=== PATIENT | male | born 1950 | race Caucasian/White ===

== ENCOUNTER 2017-06-09 10:11 | Emergency (ER) | payer BC ==
[2017-06-09] MEDS ORDERED: NS 0.9% 1000 ML* 3,000 ML IV ONE (10:45)
[2017-06-09 11:36] LABS: Hematocrit 48 % (42-52); Hemoglobin 15.4 g/dl (14.0-18.0); Mean Corpuscular HGB Conc 32 g/dl (31-36); Mean Corpuscular Hemoglobin 29 pg (27-31); Mean Corpuscular Volume 90 fL (80-94); Mean Platelet Volume 9 um3 (7.4-10.4); Red Blood Count 5.33 10^6/ul (4.0-5.4); Red Cell Distribution Width 15 % (10.5-15); White Blood Count 4.4 10^3/ul (3.5-10.8)
[2017-06-09 11:39] LABS: Comments Flag Yes
[2017-06-09 11:40] LABS: Add Diff/Slide Review? Slide Review Added
[2017-06-09 11:50] LABS: Albumin 3.7 g/dL (3.2-5.2); BUN/Creatinine Ratio 18.3 (8-20); C Reactive Protein 115.3 mg/L (< 5.00); EGFR African American 104.9 (>60); EGFR Non-African American 81.5 (>60); Globulin 3.4 g/dL (2-4); Total Bilirubin 0.6 mg/dL (0.2-1.0); Total Protein 7.1 g/dL (6.4-8.9); Troponin I 0.03 ng/mL (<0.04)
--- NOTE | 2017-06-09 12:34 | RAD ---
Indication: Fever, cough and pneumonia. 2 views of the chest including dual energy PA views demonstrate no mediastinal shift. Heart is of normal size and configuration. Lung hernandez appear clear. Overall no changes noted since June 07, 2017. IMPRESSION: No active cardiopulmonary disease is noted.
[2017-06-09 12:58] LABS: Urine Bacteria Absent (Absent); Urine Bilirubin Negative (Negative); Urine Glucose Negative (Negative); Urine Nitrite Negative (Negative)
[2017-06-09] MEDS ORDERED: Acetaminophen TAB* 325 MG PO ONE (12:59)
[2017-06-09] MEDS ORDERED: Acetaminophen TAB* 325 MG ONE (13:02)
[2017-06-09 13:52] LABS: Erythrocyte Sed Rate 41 mm/Hr (0-40)
[2017-06-09 14:29] VITALS: BP 143/86
--- NOTE | 2017-06-09 19:08 | ED ---
Magui Alberto Seung-Jae, scribed for Ghassan Cotton MD on 06/09/17 at 1409 . HPI Febrile Illness - HPI Summary HPI Summary: Pt is a 67 y/o M presenting to the ED with c/o fever. The onset was from yesterday and pt states a fever of 102 degrees temperature. He states to have been sick for 5 days with flu-like Sx and has been taking tylenol and ibuprofen to counter. Associated Sx includes hip soreness, NARANJO, general joint malaise, fatigue, appetite loss, and cough. Pt denies CP, SOB. He has been traveling for 3 weeks recently in areas of high Malaria incidences such as [facility] and [facility]. He has not had a tick bite since his childhood. PMHx of inspirational PNA. Pt has had CXR, Lyme Titer, and Rapid Flu done at [facility] a week ago, all of which were negative. Pt does not smoke. - History of Current Complaint Chief Complaint: EDFever Time Seen by Provider: 06/09/17 11:13 Hx Obtained From: Patient Onset/Duration: Started Hours Ago Pain Intensity: 7 Pain Scale Used: 0-10 Numeric Associated Signs and Symptoms: Cough, Headache, Joint Pain, Other: - hip soreness, loss in appetite, fatigue negative CP, SOB - Additional Pertinent History Primary Care Physician: [id number] - Allergy/Home Medications Allergies/Adverse Reactions: Allergies Allergy/AdvReac Type Severity Reaction Status Date / Time Bee Venom Allergy Anaphylatic Verified 08/21/16 12:07 Shock PMH/Surg Hx/FS Hx/Imm Hx Endocrine/Hematology History: Denies: Hx Diabetes, Hx Thyroid Disease Cardiovascular History: Reports: Hx Hypercholesterolemia Denies: Hx Hypertension Respiratory History: Reports: Other Respiratory Problems/Disorders - WALKING PNUEMONIA Denies: Hx Asthma, Hx Chronic Obstructive Pulmonary Disease (COPD) GI History: Reports: Hx Gastroesophageal Reflux Disease Denies: Hx Ulcer Musculoskeletal History: Reports: Hx Arthritis - mild Denies: Hx Rheumatoid Arthritis, Hx Osteoporosis - Cancer History Cancer Type, Location and Year: 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 Negative: Shortness Of Breath Positive: Other - appetite loss Positive: Other - hip soreness, general joint pain Positive: Headache All Other Systems Reviewed And Are Negative: Yes Physical Exam - Summary Physical Exam Summary: The patient is well-nourished in no acute distress and in no acute pain. The skin is warm and dry .Erythematous area on chest without itching. -- no blanching. No vesicles seen. Skin turgor decreased. HEENT: The head is normocephalic and atraumatic. The pupils are equal and reactive. The conjunctivae are clear and without drainage. Mouth reveals moist mucous membranes The external ears are intact. The ear canals are patent and without drainage. The tympanic membranes are intact. No percussive tenderness. erythematous in posterior pharynx. There is post nasal drip Neck is supple with full range of motion and non-tender. There are no carotid bruits. There is no neck vein distension. Respiratory: Chest is non-tender. Presence of rales in right lung. Left lung has expiratory wheezing. Cardiovascular: Hear is regular rate and rhythm. There is no murmur or rub auscultated. There is no peripheral edema and pulses are symmetrical and equal. Abdomen: The abdomen is soft and non-tender. There are normal bowel sounds heard in all four quadrants and there is no organomegaly palpated. Musculoskeletal: There is no back pain noted. Extremities are non-tender with full range of motion. There is good capillary refill. There is no peripheral edema or calf tenderness elicited. Neurological: Patient is alert and oriented to person, place and time. The patient has symmetrical motor strength in all four extremities. Cranial nerves are grossly intact. Deep tendon reflexes are symmetrical and equal in all four extremities. Psychiatric: The patient has an appropriate affect and does not exhibit any anxiety or depression. Vital Signs On Initial Exam: Initial Vitals Temp Pulse Resp BP Pulse Ox 97.4 F 77 17 131/71 98 06/09/17 10:06/09/17 10:06/09/17 10:06/09/17 10:06/09/17 10:27 Diagnostics - Vital Signs Vital Signs Temp Pulse Resp BP Pulse Ox 06/09/17 10:27 97.4 F 77 17 131/71 98 - Laboratory Lab Results: Lab Results 06/09/17 06/09/17 06/09/17 Range/Units 11:00 11:00 11:00 WBC 4.4 (3.5-10.8) 10^3/ul RBC 5.33 (4.0-5.4) 10^6/ul Hgb 15.4 (14.0-18.0) g/dl Hct 48 (42-52) % MCV 90 (80-94) fL MCH 29 (27-31) pg MCHC 32 (31-36) g/dl RDW 15 (10.5-15) % Plt Count 76 L (150-450) 10^3/ul MPV 9 (7.4-10.4) um3 Neut % (Auto) 79.9 (38-83) % Lymph % (Auto) 9.8 L (25-47) % Montour % (Auto) 8.7 (1-9) % Eos % (Auto) 1.0 (0-6) % Baso % (Auto) 0.6 (0-2) % Absolute Neuts (auto) 3.5 (1.5-7.7) 10^3/ul Absolute Lymphs (auto) 0.4 L (1.0-4.8) 10^3/ul Absolute Monos (auto) 0.4 (0-0.8) 10^3/ul Absolute Eos (auto) 0 (0-0.6) 10^3/ul Absolute Basos (auto) 0 (0-0.2) 10^3/ul Absolute Nucleated RBC 0.01 10^3/ul Nucleated RBC % 0.1 ESR 41 H (0-40) mm/Hr INR (Anticoag Therapy) 1.00 (0.89-1.11) APTT 32.0 (26.0-36.3) seconds Sodium 137 (133-145) mmol/L Potassium 4.0 (3.5-5.0) mmol/L Chloride 102 (101-111) mmol/L Carbon Dioxide 29 (22-32) mmol/L Anion Gap 6 (2-11) mmol/L BUN 17 (6-24) mg/dL Creatinine 0.93 (0.67-1.17) mg/dL Est GFR ( Amer) 104.9 (>60) Est GFR (Non-Af Amer) 81.5 (>60) BUN/Creatinine Ratio 18.3 (8-20) Glucose 128 H (70-100) mg/dL Lactic Acid (0.5-2.0) mmol/L Calcium 9.0 (8.6-10.3) mg/dL Total Bilirubin 0.60 (0.2-1.0) mg/dL AST 123 H (13-39) U/L ALT 151 H (7-52) U/L Alkaline Phosphatase 253 H (34-104) U/L Total Creatine Kinase 58 (10-223) U/L Troponin I 0.03 (<0.04) ng/mL C-Reactive Protein 115.30 H (< 5.00) mg/L Total Protein 7.1 (6.4-8.9) g/dL Albumin 3.7 (3.2-5.2) g/dL Globulin 3.4 (2-4) g/dL Albumin/Globulin Ratio 1.1 (1-3) Urine Color Urine Appearance Urine pH (5-9) Ur Specific Elk (1.010-1.030) Urine Protein (Negative) Urine Ketones (Negative) Urine Blood (Negative) Urine Nitrate (Negative) Urine Bilirubin (Negative) Urine Urobilinogen (Negative) Ur Leukocyte Esterase (Negative) Urine WBC (Auto) (Absent) Urine RBC (Auto) (Absent) Urine Bacteria (Absent) Urine Glucose (Negative) Urine Ascorbic Acid (Negative) 06/09/17 06/09/17 Range/Units 11:00 12:22 WBC (3.5-10.8) 10^3/ul RBC (4.0-5.4) 10^6/ul Hgb (14.0-18.0) g/dl Hct (42-52) % MCV (80-94) fL MCH (27-31) pg MCHC (31-36) g/dl RDW (10.5-15) % Plt Count (150-450) 10^3/ul MPV (7.4-10.4) um3 Neut % (Auto) (38-83) % Lymph % (Auto) (25-47) % [place] % (Auto) (1-9) % Eos % (Auto) (0-6) % Baso % (Auto) (0-2) % Absolute Neuts (auto) (1.5-7.7) 10^3/ul Absolute Lymphs (auto) (1.0-4.8) 10^3/ul Absolute Monos (auto) (0-0.8) 10^3/ul Absolute Eos (auto) (0-0.6) 10^3/ul Absolute Basos (auto) (0-0.2) 10^3/ul Absolute Nucleated RBC 10^3/ul Nucleated RBC % ESR (0-40) mm/Hr INR (Anticoag Therapy) (0.89-1.11) APTT (26.0-36.3) seconds Sodium (133-145) mmol/L Potassium (3.5-5.0) mmol/L Chloride (101-111) mmol/L Carbon Dioxide (22-32) mmol/L Anion Gap (2-11) mmol/L BUN (6-24) mg/dL Creatinine (0.67-1.17) mg/dL Est GFR ( Amer) (>60) Est GFR (Non-Af Amer) (>60) BUN/Creatinine Ratio (8-20) Glucose (70-100) mg/dL Lactic Acid 1.2 (0.5-2.0) mmol/L Calcium (8.6-10.3) mg/dL Total Bilirubin (0.2-1.0) mg/dL AST (13-39) U/L ALT (7-52) U/L Alkaline Phosphatase (34-104) U/L Total Creatine Kinase (10-223) U/L Troponin I (<0.04) ng/mL C-Reactive Protein (< 5.00) mg/L Total Protein (6.4-8.9) g/dL Albumin (3.2-5.2) g/dL Globulin (2-4) g/dL Albumin/Globulin Ratio (1-3) Urine Color Muna Urine Appearance Clear Urine pH 5.0 (5-9) Ur Specific Elk 1.030 (1.010-1.030) Urine Protein 1+(30 mg/dl) H (Negative) Urine Ketones Trace H (Negative) Urine Blood Negative (Negative) Urine Nitrate Negative (Negative) Urine Bilirubin Negative (Negative) Urine Urobilinogen Positive H (Negative) Ur Leukocyte Esterase Negative (Negative) Urine WBC (Auto) Absent (Absent) Urine RBC (Auto) Absent (Absent) Urine Bacteria Absent (Absent) Urine Glucose Negative (Negative) Urine Ascorbic Acid * H (Negative) Result Diagrams: 06/09/17 11:00 06/09/17 11:00 Lab Statement: Any lab studies that have been ordered have been reviewed, and results considered in the medical decision making process. - Radiology Chest XR Xray Interpretation: No Acute Changes - Impression: No active cardiopulmonary disease is noted. Radiology Interpretation Completed By: Radiologist Course/Dx - Course Assessment/Plan: Pt is a 67 y/o M presenting to the ED with c/o fever. The onset was from yesterday and pt states a fever of 102 degrees temperature. He states to have been sick for 5 days with flu-like Sx and has been taking tylenol and ibuprofen to counter. Associated Sx includes hip soreness, NARANJO, general joint malaise, fatigue, appetite loss, and cough. Pt denies CP, SOB. Via CXR, no active cardiopulmonary disease was noted. Blood work showed elevated LFT, and CRP. Pt was D/C with f/u with Dr. Hamilton. - Febrile Illness Differential Diagnoses: Bacteremia, Fever of Unknown Origin, Pneumonia, Pyelonephritis, Other: - lyme's disease, - Diagnoses Provider Diagnoses: Fever, Bronchitis, Elevated LFTs Discharge - Discharge Plan Condition: Stable Disposition: HOME Prescriptions: DOXYcycline CAP(*) [DOXYcycline 100MG CAP(*)] 100 mg PO DAILY #28 cap Patient Education Materials: Fever in Adults (ED), Acute Bronchitis (ED), Doxycycline (By mouth) Referrals: Alfonso Mcclure MD [Primary Care Provider] - 2 Days Additional Instructions: Your bloodwork is noted with elevated Liver Function Enzymes. Please be sure to follow up with your primary care provider regarding your liver function workup. The documentation as recorded by the Magui joseph Seung-Jae accurately reflects the service I personally performed and the decisions made by , Ghassan Cotton MD.
== END 2017-06-09 14:29 | disposition home or self-care (01) ==
LOC: ED 10:11
DX: R50.9 Fever, unspecified (principal); J40 Bronchitis, not specified as acute or chronic; R05 Cough; R51 Headache; M25.50 Pain in unspecified joint; R79.89 Other specified abnormal findings of blood chemistry
CPT/HCPCS: 36415; 71020; 80053; 80074; 81003; 81015; 82550; 83605; 84484; 85025; 85610; 85652; 85730; 86140; 87040; 87077; 87150; 87205; 99284; A9270-GY